=== PATIENT | male | born 1950 | race Caucasian/White ===

== ENCOUNTER 2019-04-01 05:06 | Emergency (ER) | payer OTHER ==
[~2019-04-01] VITALS: Ht 180.3 cm; Wt 97.5 kg
--- NOTE | ~2019-04-01 | EMS ---
[place] [address] EMS Patient Care Report Name: SISSY MONTEMAYOR Room #: REG Srinivasa#: [id number] Admission: 04/01/19 Attend Phys: Discharge: Date of : 48 Report #: [id number] THIS REPORT FOR: //name// Report Transmitted: 04/01/2019 04:59 EMS Care Summary [place], [place]/[facility] Incident [id number] @ 04/01/2019 04:38 Incident Location [id number] [place] [address] Patient SISSY MONTEMAYOR Male, 68 Years 1950 Patient Address [address] [place] [address] Patient History None Reported, Patient Allergies No known allergies, Patient Medications None Reported, Chief Complaint head lac Disposition Transported No Lights/[place] Reason Falls Transported To [facility] Narrative pt complains of head laceration/ head pain second to fall. pt states he was headed down staircase to check on alarm when he fell near bottom. pt thinks he lost his footing but is not sure. denies loc, sob, n/back pain, n/vomiting, blood thinner use. [address] [address] EMS Patient Care Report Name: SISSY MONTEMAYOR Room #: REG MARYLU Bernabe#: [id number] Admission: 04/01/19 Attend Phys: Discharge: Date of : 48 Report #: [id number] according to pt was passed for brief period. pt found seated on base of stair case in care of . pt is aox3, gcs 15. abc's intact, lungs clear. radial strong/ reg, skin warm/ dry. no changes in route. Initial Vitals @04:52P: 38,SpO2: 98, @05:01P: 95,BP: 177/103,CO: 1,SpO2: 97, @04:52P: 97,R: 18,BP: 176/98,Pain: 5/10,GCS: 15,Glucose: 126,CO: 0,SpO2: 97,Revised Trauma: 12, Assessments @04:43MENTAL:Person Oriented,Time Oriented,Event Oriented,Place Oriented,SKIN:HEENT:Head/Face: LAC,LUNG SOUNDS:General: No Abnormalities,ABDOMEN:General: No Abnormalities,PELVIS//GI:No Abnormalities,EXTREMITIES:Right Arm: Other,Right Arm: ABR,Capillary Refill: Right Upper: < 2 Sec,Left Arm: No Abnormalities,PULSE:Radial: 2+ Normal,NEURO:No Abnormalities, Impression Injury of Head Procedures @04:43ALS AssessmentResponse: UnchangedSucceeded@04:55BandagingResponse: UnchangedSucceeded@04:523-Lead ECGResponse: UnchangedSucceeded Timeline 04:37,Call Received 04:37,Dispatch Notified 04:38,Dispatched 04:38,En Route 04:41,On Scene 04:43,At Patient 04:43,ALS Assessment,Response: UnchangedSucceeded, 04:52,3-Lead ECG,Response: UnchangedSucceeded, 04:52,BP: / M,PULSE: 38,RR: R,SPO2: 98 Ox,ETCO2: ,BG: ,PAIN: ,GCS: , 04:52,BP: 176/98 M,PULSE: 97,RR: 18 R,SPO2: 97 Ox,ETCO2: ,B,PAIN: 5,GCS: 15, 04:54,Depart Scene 04:55,Bandaging,Response: UnchangedSucceeded, 05:01,At Destination 05:01,BP: 177/103 M,PULSE: 95,RR: R,SPO2: 97 Ox,ETCO2: ,BG: ,PAIN: ,GCS: , 05:18,Call Closed Disclaimer [email or web address] Copyright 2019 [employer] [address] [address] EMS Patient Care Report Name: SISSY MONTEMAYOR Room #: REG [facility]ENTER[facility] Daniel.#: [id number] Admission: 04/01/19 Attend Phys: Discharge: Date of : 48 Report #: [id number] This EMS Care Summary contains data elements from the applicable legal record (which may be displayed differently). It is designed to provide pertinent information for the following purposes: continuity of care, clinical quality, and state data reporting. The complete legal record is available to ED staff and administrators of the receiving hospital in [employer] Patient Tracker. All data is provided "as is."
[2019-04-01 07:11] VITALS: BP 155/92
== END 2019-04-01 07:15 | disposition home or self-care (01) ==
LOC: ER 05:06
DX: S01.01XA Laceration without foreign body of scalp, initial encounter (principal); W10.8XXA Fall (on) (from) other stairs and steps, initial encounter; Y93.89 Activity, other specified; Y92.89 Other specified places as the place of occurrence of the external cause; Y99.8 Other external cause status

== ENCOUNTER → 2019-04-04 | Outpatient (CLI) | payer OTHER | LOC: RAD 16:49 | DX: M25.521 Pain in right elbow (principal) ==

== ENCOUNTER 2019-04-08 13:44 | Emergency (ER) | payer OTHER ==
[~2019-04-08] VITALS: Ht 180.3 cm; Wt 97.5 kg
[2019-04-08 15:00] VITALS: BP 128/71
== END 2019-04-08 15:01 | disposition home or self-care (01) ==
LOC: ER 13:44
DX: S01.01XD Laceration without foreign body of scalp, subsequent encounter (principal); W10.8XXD Fall (on) (from) other stairs and steps, subsequent encounter